=== PATIENT | male | born 1990 | race Caucasian/White ===

== ENCOUNTER → 2020-06-11 | Outpatient (CLI) | payer OTHER ==
--- NOTE | 2020-06-11 11:53 | US ---
EXAMINATION TYPE: US scrotum with doppler. Grayscale and color Doppler Duplex imaging performed of t nicholas scrotum. DATE OF EXAM: 06/11/2020 COMPARISON: NONE CLINICAL HISTORY: N50.812 Left testicular pain. Intermittent pain left testicle pain EXAM MEASUREMENTS: TESTICLES: Right Testicle: 4.6 x 2.1 x 3.5 cm Left Testicle: 4.2 x 1.8 x 3.5 cm EPIDIDYMIS HEAD: Right Epididymis: 0.9 cm Left Epididymis: 1.2 cm Doppler performed to assess for testicular vascularity; good bilateral color flow and waveforms are s een. There is no evidence of testicular torsion. Presence of hydroceles: small fluid collection lateral to right testicle Presence of varicoceles: prominent vascularity lateral to left testicle IMPRESSION: 1. Small amount fluid adjacent to right testicle. 2. No suspicious torsion or increased vascularity.
== END ==
LOC: RADUSWWP 10:19
PROVIDERS: ATTEND Family Medicine
DX: N50.812 Left testicular pain (principal)
CPT/HCPCS: 76870; 93975